=== PATIENT | male | born 1945 | race Two or more races ===

== ENCOUNTER 2025-03-25 09:29 | Inpatient (IN) | payer OTHER ==
[~2025-03-25] VITALS: Ht 165.1 cm; Wt 81.6 kg
[~2025-03-25 09:29] MED LIST: AVANDARYL 4 MG-1 TAB; CARDIZEM120 MG
[2025-03-25] MEDS ORDERED: COZAAR50 MG PO (10:21)
--- NOTE | 2025-03-25 10:29 | NUR ---
SE RECIBE PTE MASCULINO ALERTA Y ORIENTADO X3 QUIEN REFIERE TENER UN ACCIDENTE Y LASTIMARSE LA PIERNA DERECHA HACE 3 MESES. HACE 2 SEMANAS LA PIERNA COMENZO A EXPULSAR LIQUIDO. SE MIDEN S/V Y SE UBICA.
[2025-03-25] MEDS ORDERED: FAMOtidine 10 MG/ML (4ML VIAL) IV SCH (10:47)
[2025-03-25] MEDS ORDERED: 0.9 % SODIUM CHLORIDE 1,000 ML IV ONE (11:00)
--- NOTE | 2025-03-25 11:39 | NUR ---
SE ORIENTA PACIENTE SOBRE TX MEDICO Y BARB REFIERE ENTENDER Y ACEPTAR EL MISMO. SE PROCEDE A DWAYNE MUESTRAS DE LAB Y A CANALIZAR BAJO MEDIDAS ASEPTICAS. IRVING DE EDEMA Y ERITEMA. SE PROCEDE A ADMINISTRAR MEDICAMENTO PABLO ORDEN MEDICA BAJO MEDIDAS ASEPTICAS.
[2025-03-25 11:44] LABS: ERYTHROCYTE SEDIMENTATION RATE 43 mm/hr (0-20)
[2025-03-25 11:45] LABS: BASO % 0.6 % (0.1-1.2); EOS # 0.45 (0.04-0.54); EOS % 6.5 % (0.7-7.0); LYMPH # 1.16 (1.18-3.74); LYMPH % 16.8 % (19.3-53.1); MEAN PLATELET VOLUME 10.70 fl (9.4-12.4); MONO # 0.40 (0.24-0.82); MONO % 5.8 % (4.7-12.5); NEUT # 4.82 (1.56-6.13); NEUT % 70.0 % (34.0-71.1); RED CELL DISTRIBUTION WIDTH 13.3 % (11.6-14.4)
[2025-03-25] MEDS ORDERED: PIPERACILLIN/TAZOBACTAM SODIUM 3.375 GM VIAL IV SCH (12:00)
[2025-03-25 12:01] LABS: INR 1.05
[2025-03-25 12:04] LABS: URINE APPEARANCE Clear; URINE BILIRRUBIN Negative (NEGATIVE); URINE BLOOD Negative; URINE COLOR Yellow; URINE GLUCOSE Negative (NEGATIVE); URINE KETONE Negative (NEGATIVE); URINE LEUKOCYTE Negative; URINE NITRATE Negative; URINE PROTEIN Trace (NEGATIVE); URINE UROBILINOGEN 0.2 E.U./dl
[2025-03-25 12:07] LABS: URINE BACTERIA 8.3 uL (0.0-1933); URINE EPITHELIAL CELLS 1.8 uL (0.0-38.8); URINE RBC 6.8 uL (0.0-20.8); URINE WBC 2.7 uL (0.0-23.2)
[2025-03-25 12:17] LABS: ALT/SGPT 20.0 U/L (12-78); AST/SGOT 16.0 U/L (15-37); BILIRUBIN TOTAL 0.49 mg/dL (0.3-1.2); BUN CREA RATIO 17.0 (7.0-25.0); CREATININE SERUM 2.51 mg/dL (0.70-1.30); GFR 24.99; GLOBULINA 4.7 G/DL (2.4-3.5); GLUCOSE FASTING 122.0 mg/dL (65-100); OSMOLALITY SERUM 291.0 MOSM/KG (275-295)
[2025-03-25 13:14] LABS: URINE CAST 0.29 uL (0.0-1.40); URINE SPERM FEW
[2025-03-25] MEDS ORDERED: ACETAMINOPHEN 325 MG TABLET PO PRN (17:45)
[2025-03-25] MEDS ORDERED: PIPERACILLIN/TAZOBACTAM SODIUM 2.25 GM in DEXTROSE 5 % IN WATER 50 ML IV SCH (18:00)
[2025-03-25] MEDS ORDERED: DEXTROSE 50 % IN WATER 0.5 G/ML DISP.SYRIN IV PRN (18:15)
[2025-03-25] MEDS ORDERED: 0.9 % SODIUM CHLORIDE 1,000 ML IV SCH (18:15)
[2025-03-25] MEDS ORDERED: INSULIN LISPRO 1,000 UNIT/10 ML UNITS SUBCUTANEO PRN (18:15)
[2025-03-25 21:25] VITALS: BP 140/76; O2SAT 100
[2025-03-25 22:44] VITALS: BP 150/60; O2SAT 99
[2025-03-26 02:15] VITALS: BP 130/68; O2SAT 98
[2025-03-26] MEDS ORDERED: DILTIAZEM HCL 120 MG TABLET PO SCH (09:00)
[2025-03-26] MEDS ORDERED: LOSARTAN/HYDROCHLOROTHIAZIDE 1 UDTAB TABLET PO SCH (09:00)
[2025-03-26 10:04] VITALS: BP 147/75; O2SAT 99
[2025-03-26] MEDS ORDERED: ACETAMINOPHEN 500 MG GEL..CAP PO PRN (11:15)
[2025-03-26 17:16] VITALS: BP 151/73; O2SAT 100
[2025-03-26] MEDS ORDERED: FAMOTIDINE/PF 20 MG/2 ML VIAL IV SCH (21:00)
[2025-03-27 03:37] VITALS: BP 127/64; O2SAT 99
[2025-03-27 09:13] VITALS: BP 151/83; O2SAT 98
[2025-03-27] MEDS ORDERED: LINEZOLID IN DEXTROSE 5% 600 MG/300 ML PIGGYBAG IV SCH (17:00)
[2025-03-27 18:40] VITALS: BP 149/72
[2025-03-28 04:42] VITALS: BP 146/78; O2SAT 100
[2025-03-28 08:41] VITALS: BP 138/88; O2SAT 98
[2025-03-28] MEDS ORDERED: CHLORHEXIDINE GLUCONATE 120 ML BOTTLE TOP SCH (09:00)
[2025-03-28 22:14] VITALS: BP 133/70
[2025-03-29 03:02] VITALS: BP 145/75; O2SAT 98
[2025-03-29 08:59] VITALS: BP 144/80; O2SAT 100
== END 2025-03-29 16:47 | disposition home or self-care (01) | DRG 638 ==
LOC: ER 09:29 → MEDI 18:25
PROVIDERS: General Practice; ADMIT Student in an Organized Health Care Education/Training Program; ATTEND Student in an Organized Health Care Education/Training Program
PROC: 0JBN3ZZ Excision of Right Lower Leg Subcutaneous Tissue and Fascia, Percutaneous Approach (ICD-10-PCS; principal; 2025-03-27)
PROC: B44HZZZ Ultrasonography of Bilateral Lower Extremity Arteries (ICD-10-PCS; 2025-03-27)
PROC: BQ3DZZZ Magnetic Resonance Imaging (MRI) of Right Lower Leg (ICD-10-PCS; 2025-03-27)
DX: E11.622 Type 2 diabetes mellitus with other skin ulcer (principal); L03.115 Cellulitis of right lower limb; L97.818 Non-pressure chronic ulcer of other part of right lower leg with other specified severity; I73.9 Peripheral vascular disease, unspecified; G62.89 Other specified polyneuropathies; Z79.4 Long term (current) use of insulin
CPT/HCPCS: 73221